=== PATIENT | female | born 1940 | race Caucasian/White ===

== ENCOUNTER → 2018-10-22 09:10 | Outpatient (CLI) | payer MEDICARE, SELFPAY ==
--- NOTE | 2018-10-22 | DI.MG.S_ITS ---
BILATERAL DIGITAL SCREENING MAMMOGRAM 3D/2D WITH CAD: 10/22/2018 CLINICAL: Routine screening. Comparison is made to exams dated: 09/05/2016 mammogram, 08/02/2015 mammogram, and 07/02/2014 mammogram - [facility]. There are scattered fibroglandular elements in both breasts. Current study was also evaluated with a Computer Aided Detection (CAD) system. No significant masses, calcifications, or other findings are seen in either breast. There has been no significant interval change. IMPRESSION: NEGATIVE There is no mammographic evidence of malignancy. A 1 year screening mammogram is recommended. This exam was interpreted at Station ID: [id number]. NOTE: For mammograms, a report in lay terms will be sent to the patient. Approximately 15% of breast malignancies will not be visualized mammographically. In the management of a palpable breast mass, a negative mammogram must not discourage biopsy of a clinically suspicious lesion. Electronically Signed By: Davion gill/parish:10/22/2018 11:31:41 letter sent: Normal Exam ACR BI-RADS Category 1: Negative 3341F
== END ==
PROVIDERS: PCP Nurse Practitioner Family; Visit Provider Nurse Practitioner Family
DX: Z12.31 Encounter for screening mammogram for malignant neoplasm of breast (principal)
CPT/HCPCS: 77063; 77067

== ENCOUNTER → 2019-07-08 07:53 | Outpatient (CLI) | payer MEDICARE, SELFPAY ==
[2019-07-08 08:57] LABS: Hematocrit 26.3 % (36-46); Hemoglobin 9.1 g/dL (12.0-16.0); Mean Corpuscular HGB Conc 34.7 % (30-36); Mean Corpuscular Hemoglobin 35.3 PG (26-34); Mean Corpuscular Volume 101.6 fL (80-100); Red Blood Cell Count 2.59 X10^6/uL (4.0-5.2); Red Cell Distribution Width 21.1 % (11.6-14.8); White Blood Cell Count 4.4 X10^3/uL (4.5-11.0)
[2019-07-08 08:58] LABS: Add Manual Diff / Slide Review YES
[2019-07-08 09:02] LABS: Platelet Count 16 X10^3/uL (150-400)
[2019-07-08 09:15] LABS: Alanine Aminotransferase 15 IU/L (<35); Albumin Globulin Ratio 1.4 (1.0-2.8); Alkaline Phosphatase 73 U/L (38-126); Aspartate Aminotransferase 22 IU/L (14-36); BUN Creatinine Ratio 16.7 (6-22); Bilirubin Total 0.4 mg/dL (0.2-1.3); Blood Urea Nitrogen 15 mg/dL (7-17); Calcium 9.1 mg/dL (8.4-10.2); Carbon Dioxide 31 mmol/L (22-32); Chloride 101 mmol/L (98-107); Estimated Glomerular Filt Rate > 60.0 mL/min (>60); Globulin 2.9 g/dL (1.7-4.1); Glucose 99 mg/dL (80-110); HEMOLYSIS < 15 (0-50); Potassium 4.2 mmol/L (3.4-5.1); Sodium 139 mmol/L (137-145); Total Protein 6.9 g/dL (6.3-8.2)
[2019-07-08 09:50] LABS: Anisocytosis 2+; Macrocytosis 2+; Neutrophils Absolute Manual 396 /uL (3000-5900); Ovalocytes 2+; Platelet Estimate Decreased on smear; Total Cells Counted 100
[2019-07-08 09:51] LABS: RBC Morphology See
--- NOTE | 2019-07-24 13:33 | ONC.MSW ---
Description: New Referral Navigation T/C Activity: Called pt/spouse to confirm that we've received her referral, introduced myself as the navigator/SENIOR RESEARCH ANALYST, and assessed status of disease and immediate needs. Pt is transferring her care from Dr. Brennan in .. to here, pt was dx in 12/08 and has required ongoing blood products/labs for supportive/palliative focused care. Will forward to scheduling for next initial consult time within the next 2-weeks.
== END ==
PROVIDERS: PCP Nurse Practitioner Family; Visit Provider Internal Medicine
DX: D61.818 Other pancytopenia (principal); C92.00 Acute myeloblastic leukemia, not having achieved remission
CPT/HCPCS: 36415; 80053; 85025

== ENCOUNTER → 2019-07-14 07:42 | Outpatient (CLI) | payer MEDICARE, SELFPAY ==
[2019-07-14 08:22] LABS: Hematocrit 21.3 % (36-46); Hemoglobin 7.5 g/dL (12.0-16.0); Mean Corpuscular HGB Conc 35.4 % (30-36); Mean Corpuscular Hemoglobin 35.9 PG (26-34); Mean Corpuscular Volume 101.5 fL (80-100); White Blood Cell Count 4.1 X10^3/uL (4.5-11.0)
[2019-07-14 08:29] LABS: Add Manual Diff / Slide Review YES
[2019-07-14 08:31] LABS: Alanine Aminotransferase 14 IU/L (<35); Albumin 3.8 g/dL (3.5-5.0); Albumin Globulin Ratio 1.4 (1.0-2.8); Alkaline Phosphatase 67 U/L (38-126); Aspartate Aminotransferase 21 IU/L (14-36); BUN Creatinine Ratio 22.5 (6-22); Bilirubin Total 0.3 mg/dL (0.2-1.3); Blood Urea Nitrogen 18 mg/dL (7-17); Calcium 8.7 mg/dL (8.4-10.2); Carbon Dioxide 30 mmol/L (22-32); Chloride 103 mmol/L (98-107); Estimated Glomerular Filt Rate > 60.0 mL/min (>60); Globulin 2.7 g/dL (1.7-4.1); Glucose 100 mg/dL (80-110); HEMOLYSIS < 15 (0-50); Potassium 4.1 mmol/L (3.4-5.1); Sodium 140 mmol/L (137-145); Total Protein 6.5 g/dL (6.3-8.2)
[2019-07-14 09:20] LABS: Neutrophils Absolute Manual 533 /uL (3000-5900); Total Cells Counted 100
[2019-07-14 09:22] LABS: Anisocytosis 2+; Macrocytosis 1+; Platelet Estimate Decreased on smear
[2019-07-14 09:23] LABS: Ovalocytes 3+; Poikilocytosis 1+; Tear Drop Cells 1+
[2019-07-14 10:14] LABS: Platelet Count 15 X10^3/uL (150-400)
== END ==
PROVIDERS: PCP Nurse Practitioner Family; Visit Provider Internal Medicine
DX: C92.00 Acute myeloblastic leukemia, not having achieved remission (principal)
CPT/HCPCS: 36415; 80053; 85025

== ENCOUNTER → 2019-07-21 08:38 | Outpatient (CLI) | payer MEDICARE, SELFPAY ==
[2019-07-21 10:33] LABS: Hematocrit 29.6 % (36-46); Hemoglobin 10.3 g/dL (12.0-16.0); Mean Corpuscular HGB Conc 34.7 % (30-36); Mean Corpuscular Hemoglobin 34.7 PG (26-34); Mean Corpuscular Volume 99.9 fL (80-100); Red Blood Cell Count 2.96 X10^6/uL (4.0-5.2); White Blood Cell Count 4.7 X10^3/uL (4.5-11.0)
[2019-07-21 10:41] LABS: Alanine Aminotransferase 21 IU/L (<35); Albumin 3.8 g/dL (3.5-5.0); Albumin Globulin Ratio 1.3 (1.0-2.8); Alkaline Phosphatase 71 U/L (38-126); Aspartate Aminotransferase 26 IU/L (14-36); Bilirubin Total 0.4 mg/dL (0.2-1.3); Blood Urea Nitrogen 16 mg/dL (7-17); Calcium 8.9 mg/dL (8.4-10.2); Carbon Dioxide 31 mmol/L (22-32); Chloride 101 mmol/L (98-107); Estimated Glomerular Filt Rate > 60.0 mL/min (>60); Globulin 2.9 g/dL (1.7-4.1); Glucose 96 mg/dL (80-110); HEMOLYSIS < 15 (0-50); Potassium 4.6 mmol/L (3.4-5.1); Sodium 139 mmol/L (137-145); Total Protein 6.7 g/dL (6.3-8.2)
[2019-07-21 10:48] LABS: Add Manual Diff / Slide Review YES
[2019-07-21 11:34] LABS: Neutrophils Absolute Manual 329 /uL (3000-5900); Total Cells Counted 100
[2019-07-21 11:37] LABS: Anisocytosis 2+; Platelet Estimate Decreased on smear; Poikilocytosis 1+
[2019-07-21 11:38] LABS: Ovalocytes 1+
[2019-07-21 11:45] LABS: Platelet Count 17 X10^3/uL (150-400)
== END ==
PROVIDERS: PCP Nurse Practitioner Family; Visit Provider Internal Medicine
DX: D61.818 Other pancytopenia (principal)
CPT/HCPCS: 36415; 80053; 85025

== ENCOUNTER → 2019-07-28 08:55 | Outpatient (CLI) | payer MEDICARE, SELFPAY ==
[2019-07-28 09:45] LABS: Hematocrit 25.1 % (36-46); Hemoglobin 8.9 g/dL (12.0-16.0); Mean Corpuscular HGB Conc 35.6 % (30-36); Mean Corpuscular Hemoglobin 35.2 PG (26-34); Red Blood Cell Count 2.53 X10^6/uL (4.0-5.2); Red Cell Distribution Width 17.7 % (11.6-14.8); White Blood Cell Count 4.9 X10^3/uL (4.5-11.0)
[2019-07-28 09:51] LABS: Add Manual Diff / Slide Review YES
[2019-07-28 10:01] LABS: Platelet Count 11 X10^3/uL (150-400)
[2019-07-28 10:05] LABS: Alanine Aminotransferase 23 IU/L (<35); Albumin 3.6 g/dL (3.5-5.0); Albumin Globulin Ratio 1.3 (1.0-2.8); Alkaline Phosphatase 64 U/L (38-126); Aspartate Aminotransferase 25 IU/L (14-36); BUN Creatinine Ratio 22.5 (6-22); Bilirubin Total 0.3 mg/dL (0.2-1.3); Blood Urea Nitrogen 18 mg/dL (7-17); Calcium 8.9 mg/dL (8.4-10.2); Carbon Dioxide 33 mmol/L (22-32); Chloride 102 mmol/L (98-107); Estimated Glomerular Filt Rate > 60.0 mL/min (>60); Globulin 2.8 g/dL (1.7-4.1); Glucose 99 mg/dL (80-110); HEMOLYSIS < 15 (0-50); Potassium 4.1 mmol/L (3.4-5.1); Sodium 140 mmol/L (137-145); Total Protein 6.4 g/dL (6.3-8.2)
[2019-07-28 10:11] LABS: Neutrophils Absolute Manual 490 /uL (3000-5900); Total Cells Counted 100
[2019-07-28 10:12] LABS: Anisocytosis 2+
== END ==
PROVIDERS: PCP Internal Medicine; Visit Provider Internal Medicine
DX: C92.00 Acute myeloblastic leukemia, not having achieved remission (principal)
CPT/HCPCS: 36415; 80053; 85025

== ENCOUNTER → 2019-08-11 09:05 | Outpatient (CLI) | payer MEDICARE, SELFPAY ==
[2019-08-11 10:15] LABS: Hematocrit 28.6 % (36-46); Hemoglobin 10.1 g/dL (12.0-16.0); Mean Corpuscular HGB Conc 35.4 % (30-36); Mean Corpuscular Hemoglobin 33.3 PG (26-34); Red Blood Cell Count 3.04 X10^6/uL (4.0-5.2); Red Cell Distribution Width 17.2 % (11.6-14.8); White Blood Cell Count 6.1 X10^3/uL (4.5-11.0)
[2019-08-11 10:16] LABS: Add Manual Diff / Slide Review YES
[2019-08-11 10:28] LABS: Chloride 98 mmol/L (98-107); HEMOLYSIS < 15 (0-50)
[2019-08-11 10:30] LABS: Alanine Aminotransferase 17 IU/L (<35); Albumin 3.7 g/dL (3.5-5.0); Albumin Globulin Ratio 1.2 (1.0-2.8); Alkaline Phosphatase 84 U/L (38-126); Aspartate Aminotransferase 19 IU/L (14-36); BUN Creatinine Ratio 18.6 (6-22); Bilirubin Total 0.3 mg/dL (0.2-1.3); Blood Urea Nitrogen 13 mg/dL (7-17); Carbon Dioxide 30 mmol/L (22-32); Estimated Glomerular Filt Rate > 60.0 mL/min (>60); Glucose 105 mg/dL (80-110); Potassium 3.8 mmol/L (3.4-5.1); Sodium 137 mmol/L (137-145); Total Protein 6.7 g/dL (6.3-8.2)
[2019-08-11 10:51] LABS: Neutrophils Absolute Manual 1037 /uL (3000-5900); Total Cells Counted 100
[2019-08-11 10:52] LABS: Anisocytosis 2+
[2019-08-11 11:13] LABS: Platelet Count 34 X10^3/uL (150-400)
== END ==
PROVIDERS: PCP Internal Medicine; Visit Provider Internal Medicine
DX: D61.818 Other pancytopenia (principal); C92.00 Acute myeloblastic leukemia, not having achieved remission
CPT/HCPCS: 36415; 80053; 85025